=== PATIENT | female | born 1945 | race Caucasian/White ===

== ENCOUNTER 2019-03-11 05:37 | Emergency (ER) | payer MEDICARE, OTHER ==
[~2019-03-11] VITALS: Ht 149.9 cm; Wt 56.8 kg
[2019-03-11 05:42] VITALS: Ht 149.9 cm; Wt 56.8 kg
[2019-03-11] MEDS ORDERED: KETOROLAC 15 MG INJ IV STA (06:49)
[2019-03-11] MEDS ORDERED: DIAZEPAM 5 MG/ML SYG IV ONE (07:00)
--- NOTE | 2019-03-11 07:00 | ERD ---
ER Documentation Chief Complaint Chief Complaint R100. LUQ AP X 2 DAYS. ALSO C/O NAUSEA AND CHRONIC LOWER BACK PAIN HPI This is a 73-year-old female with a past medical history of hypertension, chronic low back pain and spinal stenosis status post 2 back surgeries who is presenting with mid and lower back pain radiating to the front on the left. The patient endorses left lower rib and left upper quadrant abdominal aching tight s pasming pain, waxing and waning in nature, worse with movement and improved with rest. The patient reports that she was walking in [employer] with her walker a few days ago when she noticed a sore aching sensation to this region. The patient reports that the pain catches her and she feels like she cannot move. The patient reports that she feels like it is a muscle wrapping around her upper abdomen that is tight and pulling her out of whack. The patient reports that her physical therapist has told her that she has intercostal pains. She reportedly has had these pains before, but they have been less severe. The patient appears well. She is smiling in the room and in no distress. The p atient denies feeling sick recently. The patient denies fever or chills. The patient has had no headache or vision changes. The patient does not endorse neck pain. The patient denies lightheadedness or dizziness. The patient has had no chest pain or trouble breathing. The patient denies nausea or vomiting. The patient does endorse chronic constipation, but no diarrhea. She denies any black or bloody or tarry stools. She denies any dysuria or hematuria or urgency or frequency. The patient has had no focal deficits. The patient has had no weakness or numbness or tingling to the face or extremities. ROS All systems reviewed and are negative except as per history of present illness. Allergies Allergies: Coded Allergies: No Known Allergy (Unverified , 03/11/19) PMhx/Soc Medical and Surgical Hx: pt denies Surgical Hx History of Surgery: Yes (TWO LOWER BACK SURGERIES/LAMINECTOMIES (2016)) Anesthesia Reaction: No Hx Neurological Disorder: No Hx Respiratory Disorders: No Hx Cardiac Disorders: Yes (HTN) Hx Psychiatric Problems: Yes (DEPRESSION) Hx Miscellaneous Medical Probl: No Hx Alcohol Use: No Hx Substance Use: No Hx Tobacco Use: No Smoking Status: Never smoker FmHx Family History: No diabetes Physical Exam Vitals Vital Signs Date Temp Pulse Resp B/P (MAP) Pulse Ox O2 O2 Flow FiO2 Time Delivery Rate 03/11/19 82 18 188/88 98 Room Air 06:40 (121) 03/11/19 98.5 92 20 190/98 98 05:42 (128) Physical Exam Const: No apparent distress, well-developed, well-nourished Head: Normocephalic, Atraumatic Eyes: Normal Conjunctiva. Extraocular movements grossly intact. ENT: Normal External Ears, Nose and Mouth. Neck: Full range of motion. No meningismus. Resp: Clear to auscultation bilaterally, No wheezes, rales or rhonchi Cardio: Regular rate and rhythm. No murmurs, rubs or gallops Abd: Soft, non distended. Superficial left upper quadrant and left lower rib tightness and tenderness. No guarding or rebound. Normal bowel sounds Skin: No petechiae or rashes Back: No midline tenderness. No CVA tenderness Ext: No cyanosis, or edema Neur: Awake and alert, oriented 4. No facial droop. Normal strength, sensation and coordination. Psych: Normal Mood and Affect Result Diagram: 03/11/19 0558 03/11/19 0558 Results 24 hrs Laboratory Tests Test 03/11/19 05:58 03/11/19 06:34 White Blood Count 5.0 10^3/ul Red Blood Count 4.68 10^6/ul Hemoglobin 11.5 g/dl Hematocrit 37.3 % Mean Corpuscular Volume 79.7 fl Mean Corpuscular Hemoglobin 24.6 pg Mean Corpuscular Hemoglobin Concent 30.8 g/dl Red Cell Distribution Width 15.2 % Platelet Count 292 10^3/UL Mean Platelet Volume 9.9 fl Immature Granulocytes % 0.400 % Neutrophils % 63.1 % Lymphocytes % 27.7 % Monocytes % 8.2 % Eosinophils % 0.0 % Basophils % 0.6 % Nucleated Red Blood Cells % 0.0 /100WBC Immature Granulocytes # 0.020 10^3/ul Neutrophils # 3.2 10^3/ul Lymphocytes # 1.4 10^3/ul Monocytes # 0.4 10^3/ul Eosinophils # 0.0 10^3/ul Basophils # 0.0 10^3/ul Nucleated Red Blood Cells # 0.0 10^3/ul Sodium Level 142 mmol/L Potassium Level 3.7 mmol/L Chloride Level 105 mmol/L Carbon Dioxide Level 25 mmol/L Anion Gap 12 Blood Urea Nitrogen 19 mg/dl Creatinine 0.84 mg/dl Est Glomerular Filtrat Rate mL/min mL/min Glucose Level 155 mg/dl Calcium Level 10.1 mg/dl Total Bilirubin 0.3 mg/dl Direct Bilirubin 0.00 mg/dl Indirect Bilirubin 0.3 mg/dl Aspartate Amino Transf (AST/SGOT) 18 IU/L Alanine Aminotransferase (ALT/SGPT) 16 IU/L Alkaline Phosphatase 74 IU/L Total Protein 8.1 g/dl Albumin 4.5 g/dl Globulin 3.60 g/dl Albumin/Globulin Ratio 1.25 Lipase 56 U/L Urine Color YELLOW Urine Clarity CLEAR Urine pH 5.0 Urine Specific [place] 1.012 Urine Ketones TRACE mg/dL Urine Nitrite POSITIVE mg/dL Urine Bilirubin NEGATIVE mg/dL Urine Urobilinogen NEGATIVE mg/dL Urine Leukocyte Esterase TRACE E[place]/ul Urine Microscopic RBC 12 /HPF Urine Microscopic WBC 7 /HPF Urine Squamous Epithelial Cells FEW /HPF Urine Bacteria MODERATE /HPF Urine Hemoglobin 1+ mg/dL Urine Glucose NEGATIVE mg/dL Urine Total Protein NEGATIVE mg/dl Current Medications Medications Dose Sig/Kj Start Time Status Last (Trade) Ordered Route PRN Stop Time Admin Dose Reason Admin Ketorolac 15 mg ONCE STAT 03/11/19 DC 03/11/19 Tromethamine IV 06:49 06:57 (Toradol) 03/11/19 06:52 Diazepam 5 mg ONCE ONCE 03/11/19 DC 03/11/19 (Valium) IV 07:00 06:57 03/11/19 07:01 Procedures/MDM MDM The patient's presentation warrants further investigation. Previous medical records, if available, were reviewed. LABS The patient's laboratory testing was obtained and reviewed. No emergent treatment was required unless described below. CBC: No E/o systemic infection or severe anemia or thrombocytopenia Chemistry: No E/o severe acidosis or alkalosis or renal failure or liver disease or diabetic ketoacidosis Lipase: No E/o pancreatitis UA: Nitrates evident, not a clean catch specimen, possible asymptomatic bacteruria, will not treat immediately. EKG EKG read by me: Rate/Rhythm: Regular rate and rhythm at a rate of 88 bpm Intervals: Normal [place]: Normal Impression: Q waves in the inferior leads indicating possible old cardiac ischemia. No evidence of ischemia or arrhythmia IMAGING Imaging and Radiology interpretation reviewed. CXR 1V Interpreted by me Soft Tissue: No acute abnormalities Bones: No acute abnormalities Mediastinum/Cardiac Silhouette: Unremarkable. No widened mediastinum. Lungs: No acute abnormalities. Normal pulmonary vasculature. No pneumothorax. No pulmonary edema. Clear costal diaphragmatic angles. No pleural effusions. No opacity or consolidations concerning for pneumonia. TREATMENT/DISPOSITION The patient presents for symptoms most consistent with radicular back pain. The patient does have a history of chronic back pain, spinal stenosis and multiple surgeries. Her pain begins from the back and radiates around her superficially. There is no trauma or injury. I do not suspect acute fracture or listhesis. The patient was treated with Toradol, Fentanyl and Valium with some improvement of her pain and spasm. I do feel that this may be worked up further in an outpatient setting. I do not suspect a cardiopulmonary process. The patient's EKG is reassuring. I have low suspicion for acute coronary syndrome. The patient's chest xray does not reveal pneumonia or pneumothorax or pleural effusions or pulmonary edema. The patient does not have a widened mediastinum and does not have signs or symptoms concerning for thoracic aortic aneurysm or dissection. The patient does not have pneumomediastinum or signs concerning for esophageal tear or rupture. The patient has no clinical or radiographic signs of pericardial effusion or tamponade. The patient does not have pneumoperitoneum and I have decreased suspicion of viscus perforation as possible referred pain. The patient does not have a history of heart failure and I have low suspicion for this. The patient does not have a diagnosis of COPD and is not wheezing today. The patient is not tachypneic or hypoxic. The patient is breathing comfortably and without pleuritic pain. The patient is not on hormonal therapy. The patient has no history of clotting or bleeding disorders. The patient has no calf tenderness. The patient has had no hemoptysis. I have decreased suspicion for PE. The patient's abdominal work-up is unremarkable. She does endorse superficial left upper quadrant tenderness. However, her lipase is normal and I do not suspect pancreatitis. She does not have any other abdominal pain. The patient does not have any evidence of peritonitis. The patient does not have clinical symptoms concerning for mesenteric ischemia or ischemic colitis. The patient does not have right upper quadrant tenderness, and I have low suspicion for gallstones, cholecystitis or biliary colic. The patient does not have any epigastric pain. I have low suspicion for gastritis, PUD or GERD. I do not see any evidence of viscus perforation. The patient does not have any right lower quadrant tenderness, or periumbilical tenderness. I have low suspicion for appendicitis. The patient's urinalysis reveals possible asymptomatic bacteriuria. That said, the patient does not have any suprapubic tenderness or urinary symptoms at all. I have decreased suspicion for acute cystitis and do not feel the patient requires treatment at this time. A urine culture will be sent off for review. The patient does not have any left lower quadrant tenderness, and I have low suspicion for diverticulosis or diverticulitis. The patient does not have any flank tenderness. The patient does not have gross hematuria. I have decreased suspicion for nephrolithiasis or renal colic. The patient does not have any palpable pulsatile mass or severe abdominal pain radiating to the back. I have low suspicion for aortic aneurysm, dissection or rupture. DISCHARGE Upon reevaluation of the patient, symptoms have improved. No emergent diagnoses were identified. At this time, I feel that the patient stable for discharge. The patient was instructed to follow-up with a primary care physician in 1-3 days. The patient will be given strict precautions with which to return to the emergency department. Prescriptions: Flexeril. The patient understands that this medication is sedating. The patient's blood pressure was elevated at greater than 120/80 while in the emergency department. The patient was otherwise stable with no evidence of hypertensive urgency or emergency. The patient does not require admission for blood pressure control. I have discussed with the patient the risks of hypertension. I have instructed the patient to return to the ER for any new or worsening symptoms including chest pain, shortness of breath, headache, blurred vision, confusion, nausea, vomiting or LOC. I have advised the patient to follow up with the primary care physician for outpatient monitoring and treatment for hypertension in 1-3 days. Disclaimer: Inadvertent spelling and grammatical errors are likely due to EHR/dictation software use and do not reflect on the overall quality of patient care. Note that the electronic time recorded on this note does not necessarily reflect the actual time of the patient encounter. Departure Diagnosis: Primary Impression: Back pain Back pain location: low back pain Chronicity: chronic Back pain laterality: left Sciatica presence: unspecified whether sciatica present Qualified Codes: M54.5 - Low back pain; G89.29 - Other chronic pain Additional Impressions: Rib pain on left side Muscle spasm Condition: Stable Patient Instructions: Back Pain (Acute Or Chronic) Additional Instructions: Thank you for for coming to [facility] for your care today. Please ask your nurse or provider if you have questions about your care today and do not leave until all your questions have been answered. Please use any medications given as directed and follow-up with your doctor (or the doctor you were referred to) in the next 1-3 days. If you do not have a primary care doctor you may follow up at the community hospital or [facility] clinic (listed below). You may also use motrin and tylenol as needed for fever and/or pain unless instructed otherwise by your provider or nurse. Indications for more urgent follow-up have been discussed, but you may return to the Emergency Department at ANY time for any worrisome or worsening symptoms. If you have abdominal pain, please know that no test or exam you received is pe rfect and you should follow up within 8 hours for continued pain. If you had any imaging studies today, such as an X-Ray or CT Scan, these studies will be reviewed later by a radiologist. You will be called if there are important findings that were not identified today, so make sure the contact inf ormation you provided at registration is correct. If you received any narcotic pain control medicine today, such as Vicodin, Morphine or Dilaudid, your coordination and judgment may be affected for a number of hours. Please do not drive or operate heavy machinery, and you may want someone to assist you at home. If you were given a prescription for narcotic medication, be aware that it is very addictive- use sparingly and only if necessary. PLEASE SEEK FURTHER EVALUATION AND MANAGEMENT AT YOUR DOCTORS OFFICE WITHIN THE NEXT 1-3 DAYS. IT IS YOUR RESPONSIBILITY TO MAKE AN APPOINTMENT FOR FOLOW-UP CARE. IF YOU HAVE A PRIMARY DOCTOR, PLEASE CALL THEIR OFFICE TO SCHEDULE AN APPOINTMENT FOR FOLLOW UP. IF YOU DO NOT HAVE A PRIMARY DOCTOR YOU CAN CALL OUR PHYSICIAN REFERRAL HOTLINE AT IF YOU CAN NOT AFFORD TO SEE A PHYSICIAN YOU CAN CHOSE FROM THE FOLLOWING [facility] CL[facility]ICS: [facility] [address] [facility] [address] [facility] [address] [facility] [address] [facility] [address] [facility]. [facility]. [address] TU DAO MD Mar 11, 2019 06:50
[2019-03-11] MEDS ORDERED: CYCL5TAB PO (08:14)
[2019-03-11] MEDS ORDERED: IBUP-1542 PO (08:14)
[2019-03-11] MEDS ORDERED: FENTAnyl 50 MCG/ML VIAL IV ONE (08:30)
[2019-03-11 08:52] VITALS: BP 142/89; PULSE 89; RESP 18
== END 2019-03-11 09:41 | disposition home or self-care (01) ==
LOC: E/R 05:37
DX: M54.5 Low back pain (principal); R07.81 Pleurodynia; M62.830 Muscle spasm of back; I10 Essential (primary) hypertension
CPT/HCPCS: 36415; 71045; 80053; 81001; 83605; 83690; 85025; 93005; 96374; 96375; 99285; J1885; J3010; J3360